=== PATIENT | female | born 1965 | race Caucasian/White ===

== ENCOUNTER → 2021-03-13 | Outpatient (CLI) | payer BC ==
[~2021-03-13] MED LIST: ABILIFY15 MG PO; CELEXA20 MG PO; LAMOTRIGINE200 MG PO; LINZESS145 MCG PO; OMEPRAZOLE20 MG PO; PERCOCET 5/325 T1 EA PO; SYNTHROID88 MCG PO; XANAX0.5 MG PO
== END ==
LOC: KOH-I 13:20
DX: M66.372 Spontaneous rupture of flexor tendons, left ankle and foot (principal); S86.012A Strain of left Achilles tendon, initial encounter
CPT/HCPCS: 73721